=== PATIENT | female | born 1965 | race Caucasian/White ===

== ENCOUNTER → 2020-11-17 | Outpatient (CLI) | payer BC, OTHER ==
[~2020-11-17] MED LIST: FLEXERIL 10 MG10 MG PO; LISINOPRIL10 MG PO; TRAMADOL HCL50 MG PO
== END ==
LOC: KOH-I 10:32
DX: M25.562 Pain in left knee (principal); M25.561 Pain in right knee; M17.0 Bilateral primary osteoarthritis of knee
CPT/HCPCS: 73564

== ENCOUNTER 2021-03-24 16:49 | Emergency (ER) | payer BC ==
[2021-03-24 20:48] LABS: HEMOGLOBIN 14.3 gm/dl (12.3-15.3); RED BLOOD COUNT 4.21 M/UL (4.00-5.10); WHITE BLOOD COUNT 6.2 K/UL (4.5-11.0)
[2021-03-24 21:01] LABS: BUN/CREATININE RATIO 19 (0-10)
[2021-03-24] MEDS ORDERED: TORADOL 10 MG T10 MG PO (22:27)
== END 2021-03-24 23:10 | disposition home or self-care (01) ==
LOC: ER1 16:49
DX: R07.89 Other chest pain (principal); R79.1 Abnormal coagulation profile; I10 Essential (primary) hypertension; K21.9 Gastro-esophageal reflux disease without esophagitis
CPT/HCPCS: 71045; 80053; 82550; 82553; 83874; 84484; 85025; 85379; 93005; 99285; J1885; Q9967

== ENCOUNTER → 2021-09-24 | Outpatient (CLI) | payer BC ==
[~2021-09-24] MED LIST changes: +TORADOL 10 MG T10 MG PO
== END ==
LOC: US 13:46
DX: R22.0 Localized swelling, mass and lump, head (principal); R22.1 Localized swelling, mass and lump, neck
CPT/HCPCS: 76536

== ENCOUNTER 2021-11-15 14:46 | Observation (INO) | payer BC ==
[~2021-11-15] VITALS: Ht 160 cm; Wt 102.1 kg
[2021-11-15 16:33] LABS: HEMOGLOBIN 13.2 gm/dl (12.3-15.3); RED BLOOD COUNT 3.98 M/UL (4.00-5.10); WHITE BLOOD COUNT 7.6 K/UL (4.5-11.0)
[2021-11-15 17:32] LABS: BUN/CREATININE RATIO 18 (0-10)
[2021-11-16] MEDS ORDERED: BUPROPION XL150 MG PO (09:35)
[2021-11-16] MEDS ORDERED: VITAMIN D21250 MCG PO (09:36)
--- NOTE | 2021-11-16 16:03 | NUR ---
PATIENT ARRIVED ON FLOOR @ 1029 VIA STRETCHER. PATIENT AMBULATED TO BATHROOM WITH STAFF MEMBER TO VOID.
--- NOTE | 2021-11-16 16:04 | NUR ---
DR. OTERO NOTIFIED AT 1530 PATIENT'S BLOOD PRESSURE STANDING WAS 149/107. SHE STATED PATIENT IS FINE AND ASK ABOUT MRI.
--- NOTE | 2021-11-16 16:05 | NUR ---
[id number] OTERO TO REMOVE TELEMETRY DURING MRI.
--- NOTE | 2021-11-16 18:53 | NUR ---
[address] OTERO OF MRI RESULTS. CURRENTLY SHE IS PLANNING A MORNING DISCHARGE.
--- NOTE | 2021-11-17 10:56 | NUR ---
[id number] Ryan (hospitalist) with report of new onset right shoulder pain and right arm weakness.
[2021-11-17] MEDS ORDERED: MECLIZINE HCL25 MG PO (12:12)
== END 2021-11-17 14:44 | disposition home or self-care (01) ==
LOC: ER1 14:46 → CDU 22:03 → OB 22:03 → CDU 22:03 → OB 11-16 10:29
PROVIDERS: Physician Assistant; ADMIT Internal Medicine
DX: H81.10 Benign paroxysmal vertigo, unspecified ear (principal); Z20.822 Contact with and (suspected) exposure to COVID-19; F32.A Depression, unspecified; Z79.899 Other long term (current) drug therapy; Z88.8 Allergy status to other drugs, medicaments and biological substances
CPT/HCPCS: 70450; 70496; 70498; 70551; 71045; 80053; 81001; 82550; 82553; 83735; 84100; 84439; 84443; 84484; 85025; 93005; 96372; 99285; G0378; J1650; J2405; J2550; J7030; Q9967; U0002